=== PATIENT | male | born 1940 | race Caucasian/White ===

== ENCOUNTER 2020-12-26 07:14 | Day surgery (SDC) | payer MEDICARE, SELFPAY ==
[2020-12-20 10:53] VITALS: BMI 20.9
--- NOTE | 2020-12-26 06:57 | MHC.SHP ---
Pre-Procedural Eval Section A Date of Service: 12/26/20 Section B Chief Complaint: cataract right eye Allergies: Allergies Allergy/AdvReac Type Severity Reaction Status Date / Time wheat Allergy gas Verified 12/20/20 10:53 Abdominal pain Plan I have reviewed the history and physical and performed a pertinent physical examination on my patient. No changes have occurred unless specified.
[2020-12-26 08:08] VITALS: BP 157/80; PULSE 85; RESP 16; TEMP 37.1; O2SAT 98
--- NOTE | 2020-12-26 08:19 | HO.ANESPROP2 ---
HPI - Anesthesia Eval Consult details Narrative: Right Eye Cataract [facility] Past Medical History Medical History CAD (coronary artery disease) COPD (chronic obstructive pulmonary disease) with emphysema GERD (gastroesophageal reflux disease) History of macular degeneration On beta chuck at home Osteoarthritis Peripheral vascular disease Pyloric stenosis Smoker Cognitive capacity: AAO X3 Functional capacity: independent ambulation Family History Family history of problems with anesthesia: No Surgical History Surgical History H/O angioplasty History of back surgery History of gastric bypass Hx of colonoscopy Hx of endoscopy Hx of heart artery stent History of Problems with Anesthesia: No Social History Social History Are you a primary childcare director to a significant other at home: No Do you presently have visiting nurse or other home services: No Patient Tobacco Use Status: Current everyday Tobacco user Tobacco use type: Cigarette Cigarette Packs Per Day: 1 Cigarettes Per Day: 20.0 Years Smoked: 50 Smoked in Last 30 Days: Yes Patient Interested in Nicotine Replacement: No Use of substances other than those prescribed or required for medical reasons: No Have you been hit, kicked, punched, or otherwise hurt by someone within the past year? If so, by whom?: No Are you DNR?: No Advance Directives: No Advance Directives Information Provided: No Advance Directives on File: No Recently lost weight without trying: No Eating poorly because of decreased appetite: No Nutrition Risks: No Nutritional Risk Meds Allergies Allergy/AdvReac Type Severity Reaction Status Date / Time wheat Allergy gas Verified 12/26/20 08:03 Abdominal pain Active Medications: Current Medications Generic Name Dose Route Start Last Admin Trade Name Freq PRN Reason Stop Dose Admin Lactated Ringer's 1,000 mls @ 50 mls/hr 12/23/20 12:15 Lr IVCONT .Q20H RODRIGO Lactated Ringer's 500 mls @ 50 mls/hr 12/26/20 07:45 Lr IVCONT .Q10H RODRIGO Povidone Iodine 1 appl 12/26/20 06:58 Povidone Iodine 5 % Ophth Soln 30 Ml Bottle EYE-RIGHT PREOP PRN Pre-Op Surgical Implant Prophy Home Medications Medication Instructions Recorded Confirmed Last Taken Type [place] 3 12/20/20 Unknown History amlodipine 5 mg tablet 1 tab PO DAILY 12/20/20 12/20/20 Unknown History aspirin 325 mg tablet 325 mg PO DAILY 12/20/20 12/20/20 Unknown History melatonin 5 mg tablet 1 tab PO BEDTIME PRN 12/20/20 12/20/20 Unknown History metoprolol tartrate 25 mg tablet 1 tab PO DAILY 12/20/20 12/20/20 Unknown History nitroglycerin 0.4 mg sublingual 0.4 mg SUBLINGUAL Q5M PRN 12/20/20 12/20/20 Unknown History tablet (Nitrostat) omeprazole 20 mg capsule,delayed 1 cap PO DAILY 12/20/20 12/20/20 Unknown History release pravastatin 20 mg tablet 1 tab PO DAILY 12/20/20 12/20/20 Unknown History tiotropium bromide 18 mcg capsule 1 cap INHALATION DAILY 12/20/20 12/20/20 Unknown History with inhalation device (Spiriva with HandiHaler) Exam Exam Date and Time: December 26, 2020818 Height,Weight and Vital Signs: Height 5 ft 7 in Weight 60.5 kg Last Vital Signs Temp 98.8 F 12/26/20 08:08 Pulse 85 12/26/20 08:08 Resp 16 12/26/20 08:08 BP 157/80 H 12/26/20 08:08 Pulse Ox 98 12/26/20 08:08 Airway Mallampati Class: II TM Dist: >3cm Neck ROM: Full Loose/Missing/Broken Teeth: Yes Heart: [id number] Lungs: cta b/l Assessment and Plan Assessment Anesthesia Assessment: Anesthesia Plan Discussed and Chart Reviewed Final Anesthetic Review Family History of Problems with Anesthesia: No History of Problems with Anesthesia: No NPO: Yes ASA Class: III Final Preanesthetic Review: No Changes in Pt Med Stat, Meds/Allgs Chart Reviewed, Consent Obtained/Reviewed and Anes Risks/Benef Reviewed Patient Risk: Intermediate Procedure Risk: Low Assessment/Block/Sedation in SS: Assess/Block/Sedation-SS Anesthetic Plan Anesthetic Plan: MAC: and Agree w/ Assess. and Plan Disposition: Standard PACU
[2020-12-26] MEDS: Tetracaine HCl/PF 0.5% Oph Sol 4 ML DROPS 1 DROP EYE-RIGHT (08:20)
[2020-12-26] MEDS: Lactated Ringers 1,000 ML 50 ML IVCONT (08:20)
[2020-12-26] MEDS: Tropicamide 1 % Ophth Sol 3 ML BTL 1 DROP EYE-RIGHT ×3 (08:23→08:33)
[2020-12-26] MEDS: Phenylephrine HCL 2.5% Oph SoL 2 ML BOTTLE 1 DROP EYE-RIGHT ×3 (08:26→08:35)
--- NOTE | 2020-12-26 09:28 | HO.PNOPHT ---
Ophthalmology Procedure Procedure Date of Service: 12/26/20 Ophthalmology Viscoelastic: Chan Carot Dual Pack Pro Ophthalmology Lenses: TECNOÉ [id number] (20) Procedure Notes: PREOPERATIVE DIAGNOSIS: Decreased visual acuity right eye secondary to cataract POSTOPERATIVE DIAGNOSIS: Same PROCEDURE: Right cataract extraction with intraocular lens insertion SURGEON: Parminder Willis M.D. ANESTHESIA: Topical/MAC ESTIMATED BLOOD LOSS: None COMPLICATIONS: None After obtaining informed consent, the patient was brought to the operating room suite and placed in the supine position. After adequate sedation per anesthesia, topical drops of Tetracaine were given to the right eye. The eye was then prepped and draped in the usual sterile fashion. The operating room microscope was then positioned over the operative eye and a lid speculum placed. A paracentesis was created. Viscoelastic was then instilled into the anterior chamber. A three plane incision was then created temporally, utilizing a 2.85 mm keratome. Capsulotomy forceps were then utilized to create a circular tear capsulotomy. Hydrodissection and hydrodelineation were carried out until adequate mobilization of the nucleus occurred. Phacoemulsification was then utilized to remove the dense central nucleus followed by removal of the cortical material utilizing the automated aspiration irrigation unit. Viscoelastic was instilled into the posterior capsular bag followed by placement of a posterior chamber intraocular lens without difficulty. The residual Viscoelastic was then removed utilizing the automated IA machine. The wound was checked and found to be watertight. The patient tolerated the procedure well and the lid speculum was removed. Intracameral injection of Vigamox 0.1 mL followed by a subtenon injection of Kenalog-40 0.2 mL were administered. The patient will be seen in the a.m.
[2020-12-26 10:00] VITALS: BP 133/72; PULSE 82; RESP 16; TEMP 37.2; O2SAT 97
== END 2020-12-26 10:10 | disposition home or self-care (01) ==
PROVIDERS: PCP Internal Medicine; Visit Provider Ophthalmology
PROC: (CPT 66985; principal; 2020-12-26 09:10)
DX: H25.11 Age-related nuclear cataract, right eye (principal); H54.7 Unspecified visual loss; H35.312 Nonexudative age-related macular degeneration, left eye; H35.032 Hypertensive retinopathy, left eye; I25.10 Atherosclerotic heart disease of native coronary artery without angina pectoris; Z98.61 Coronary angioplasty status; I10 Essential (primary) hypertension; J44.9 Chronic obstructive pulmonary disease, unspecified; E78.00 Pure hypercholesterolemia, unspecified; Z79.899 Other long term (current) drug therapy; Z79.82 Long term (current) use of aspirin; Z79.51 Long term (current) use of inhaled steroids; Z98.84 Bariatric surgery status; F17.210 Nicotine dependence, cigarettes, uncomplicated
CPT/HCPCS: 66984; J2250; J3010; J3300; V2632